=== PATIENT | female | born 1965 | race Hispanic/Latino ===

== ENCOUNTER 2020-11-21 06:16 | Emergency (ER) | payer BC ==
[~2020-11-21] VITALS: Ht 154.9 cm; Wt 95.7 kg
[2020-11-21 06:21] VITALS: BP 126/66
[2020-11-21 08:27] LABS: BASOPHILS % (AUTO) 0.5 % (0.0-5.0); EOSINOPHILS % (AUTO) 1.7 % (0.0-8.0); HEMATOCRIT 36.9 % (36-48); LYMPHOCYTES % (AUTO) 18.6 % (21.0-51.0); MEAN CORPUSCULAR HEMOGLOBIN 31.3 pg (27.0-33.0); MEAN CORPUSCULAR HGB CONC 33.6 g/dL (32.0-36.0); MEAN CORPUSCULAR VOLUME 93.2 fL (79-99); MONOCYTES % (AUTO) 8.3 % (3.0-13.0); NEUTROPHILS % (AUTO) 70.6 % (40.0-77.0); PLATELET COUNT (AUTO) 285 K/uL (130-400); RED BLOOD CELL COUNT(AUTO) 3.96 MIL/uL (4.00-5.50); RED CELL DISTRIBUTION WIDTH 12.5 % (11.0-15.5); WHITE BLOOD COUNT (AUTO) 6.4 K/uL (4.8-10.8)
[2020-11-21] MEDS ORDERED: LIDOCAINE HCL 2% VISCOUS 15 ML UDCUP PO SCH (08:30)
[2020-11-21 08:39] LABS: CREATININE 0.7 mg/dL (0.5-1.5); POTASSIUM 4.6 mmol/L (3.5-5.1)
[2020-11-21 08:43] LABS: ALBUMIN 3.6 g/dL (3.5-5.0); BILIRUBIN,TOTAL 0.5 mg/dL (0.2-1.0); TOTAL PROTEIN, SERUM 7.7 g/dL (6.0-8.3)
[2020-11-21] MEDS ORDERED: MAGNESIUM HYDROXIDE 30 ML/UDCUP ONE (10:01)
[2020-11-21] MEDS ORDERED: LIDOCAINE HCL 2% VISCOUS 15 ML UDCUP ONE (10:01)
[2020-11-21] MEDS ORDERED: MAAL30 PO (10:03)
[2020-11-21] MEDS ORDERED: ONDA22I PO (10:03)
[2020-11-21] MEDS ORDERED: FAMO-136 PO (10:03)
[2020-11-21 10:06] VITALS: BP 136/75
== END 2020-11-21 10:47 | disposition home or self-care (01) ==
LOC: EDH 06:16
DX: K29.70 Gastritis, unspecified, without bleeding (principal); M19.90 Unspecified osteoarthritis, unspecified site; E07.9 Disorder of thyroid, unspecified; Z79.899 Other long term (current) drug therapy
CPT/HCPCS: 36415; 74176; 76705; 80053; 82150; 83690; 85025